=== PATIENT | female | born 1990 | race Hispanic/Latino ===

== ENCOUNTER 2020-05-08 14:35 | Outpatient (CLI) | payer OTHER ==
--- NOTE | 2020-05-08 15:51 | ULT ---
ULTRASOUND OBSTETRICAL COMPLETE: DATE: 05/08/2020 HISTORY: 30-year-old female in . Evaluate anatomy. FINDINGS: number: jiang lie: Cephalic Maternal cervix: 3 cm. Closed. Placenta: Posterior. No placenta previa. Amniotic fluid volume: Subjectively normal. GABRIELLE not measured. heart rate: 140 bpm The following anatomy is visualized, with no evidence of anomalies: Head, cerebellum, lateral ventricles, four-chamber heart, stomach, kidneys, cord insertion, bladder, cervical spine, thoracic spine, lumbar spine, sacrum, nose and lips, upper extremities, lower extremities, and three-vessel cord. biometry: Biparietal diameter (BPD): 4.2 cm 18 w 6 d Head circumference (HC): 15.8 cm 18 w 5 d Abdominal circumference (AC): 12.9 cm 18 w 4 d Femur length (FL): 2.8 cm 18 w 3 d Average ultrasound age (AUA): 18 w 5 d Estimated date of delivery (FANY): 10/04/2020 Estimated weight (EFW): 241 g +/- 35 g IMPRESSION: 1) Live 2nd trimester intrauterine gestation. 2) Estimated gestational age of 18 weeks, 5 days 3) cephalic lie. 4) no anatomic abnormality identified.
== END 2020-05-08 14:36 | disposition home or self-care (01) ==
LOC: BICULT 14:35
PROVIDERS: ATTEND Family Medicine
DX: Z34.02 Encounter for supervision of normal first pregnancy, second trimester (principal); Z3A.18 18 weeks gestation of pregnancy
CPT/HCPCS: 76805

== ENCOUNTER 2020-09-23 05:23 | Inpatient (IN) | payer OTHER ==
[2020-09-23] MEDS ORDERED: CEFAZOLIN 2 GM in Premix Bag 1 BAG IVPB SCH (05:59)
[2020-09-23] MEDS ORDERED: Promethazine HCl 25 MG/ML VIAL IM PRN ×3 (05:59→10:36)
[2020-09-23] MEDS ORDERED: Ondansetron PF 4 MG/2 ML Vial IVP PRN ×3 (05:59→10:36)
[2020-09-23] MEDS ORDERED: hydrALAZINE 20 MG/ML VIAL SLOW IVP PRN ×2 (05:59→10:36)
[2020-09-23] MEDS ORDERED: Bicitra 30 ML UDCUP PO SCH (05:59)
[2020-09-23 06:05] VITALS: BMI 33.8
[2020-09-23 06:34] LABS: Hemoglobin 12.2 g/dL (12.0-16.0); Mean Corpuscular HGB CONC 34.5 g/dL (32.0-36.0); Mean Corpuscular Hemoglobin 30.5 pg (27.0-31.0); Mean Corpuscular Volume 88.3 fL (78.0-98.0); Platelet Count 226 thou/uL (130-400); RBC Distribution Width 13.5 % (11.5-14.5); Red Blood Cell (RBC) Count 4.01 mill/uL (4.20-5.40); White Blood Cell (WBC) Count 14.2 thou/uL (4.8-10.8)
[2020-09-23 07:08] LABS: Syphilis Antibody Nonreactive (Nonreactive); Syphilis Antibody Index 0.04 S/CO (<1.00 Non-Reactive)
[2020-09-23 07:09] LABS: HBSAg Index 0.18 S/CO (0-0.99); Hep B Surf Ag Non-Reactive S/CO (NonReactive)
[2020-09-23] MEDS ORDERED: Morphine PF 10 MG/10 ML VIAL ONE (07:25)
[2020-09-23] MEDS ORDERED: Ondansetron PF 4 MG/2 ML Vial ONE (07:28)
[2020-09-23] MEDS ORDERED: Oxytocin 10 UNITS/ML VIAL ONE ×2 (07:28→08:38)
[2020-09-23] MEDS ORDERED: PHENYLEPHRINE-NS 100 MCG/ML 10 ML SYRINGE ONE (07:28)
[2020-09-23] MEDS ORDERED: Ketamine 50 MG/ML (10ML VIAL) ONE (08:14)
[2020-09-23] MEDS ORDERED: L&D-Morphine 4 MG/ML VIAL SLOW IVP PRN (09:32)
[2020-09-23] MEDS ORDERED: Ketorolac Tromethamine 30 MG/ML VIAL IVP PRN (09:32)
[2020-09-23] MEDS ORDERED: Naloxone HCl 0.4 mg/ml Vial IV PRN (09:32)
[2020-09-23] MEDS ORDERED: Meperidine HCl/PF 25 MG/ML VIAL SLOW IVP PRN (09:32)
[2020-09-23] MEDS ORDERED: Naloxone HCl 0.4 mg/ml Vial IVP PRN ×2 (09:32)
[2020-09-23] MEDS ORDERED: Promethazine HCl 25 MG SUPP PR PRN (09:32)
[2020-09-23] MEDS ORDERED: HYDROmorphone 2 MG/ML VIAL SLOW IVP PRN ×2 (09:32→10:08)
[2020-09-23] MEDS ORDERED: diphenhydrAMINE 50 MG/ML VIAL IVP PRN (09:32)
[2020-09-23] MEDS ORDERED: Ondansetron HCl/PF 4 MG/2 ML Vial IVP PRN (09:32)
[2020-09-23] MEDS ORDERED: Communication Order-Pharmacy FS SCH (09:45)
[2020-09-23] MEDS ORDERED: Ketorolac Tromethamine 30 MG/ML VIAL IVP SCH (09:45)
[2020-09-23] MEDS ORDERED: Ketorolac Tromethamine 30 MG/ML VIAL ONE (09:46)
[2020-09-23] MEDS ORDERED: Morphine 4 MG/ML VIAL ONE (09:47)
--- NOTE | 2020-09-23 09:58 | PDOC.OPDEL ---
OB Operative/Delivery Note Delivery Dr/Surgeon: Rolando Assist: Mattie Pre-Delivery Diagnosis: breech Procedure/Post Delivery Dx: primary low transverse CS Weeks gestation: 39 (39.2) Anesthesia: spinal - Findings A Sex: male - 1 min: 8 - 5 min: 9 - Additional Findings/Plan Placenta delivered: manual removal findings: low transverse hysterotomy without extension, other (Serosal polypoid lesions on posterior aspect of uterus, approx 1x1cm and second approx 0.5 x 3cm) Estimated blood loss: 405 Compilations/Other Findings: Date of Procedure: 09/23/20 Resident Surgeon: Mattie Attending Surgeon: Rolando Procedure: Primary low transverse caesarean section Preoperative Diagnosis: 1) Term, SIUP 2) Breech Presentation Postoperative Diagnosis: 1) Term SIUP, delivered Anesthesia: spinal Indications: The patient is a 30 year old female at 39.2 weeks gestation who presented for primary low transverse caesarean section for breech presentation. Procedure in Detail: After risks, benefits, and alternatives were explained to the patient, she gave informed consent. Pre-operative antibiotics included Cefazolin 2 gram IV. The patient was taken to the operating room and spinal anesthesia was initiated. She was placed in the supine position with a left tilt and prepped and draped in usual sterile fashion. A Pfannenstiel incision was made with a scalpel and carried down to the level of the fascia which was sharply nicked. Small areas of bleeding were controlled with bovie electrocautery. The fascial cut was extended bilaterally with Mcneil scissors. The inferior and superior edges of the cut fascial edges were elevated with Jai clamps and the underlying rectus muscles were sharply and bluntly dissected free. The recti were divided with blunt dissection and retracted manually. The peritoneum was entered bluntly and retracted manually. Bladder blade was placed. A low transverse score was made with a new, clean scalpel and the uterus was entered in the midline bluntly. The hysterotomy was extended manually. Amniotomy with clear fluid. The infant was noted to be footling breech and was easily extracted. Mouth and nares were bulb suctioned. Cord clamped and cut and grossly normal male was handed to waiting nurse. Cord blood was obtained. Placenta was manually extracted, found to be intact with 3 vessel cord and discarded. The uterus was externalized and the endometrium was curetted with a dry lap. The uterus was then noted to be firm. The bladder blade was replaced and the uterus was closed with a running locking #1 Monocryl. A single figure of eight suture was placed using #1 Monocryl for one area of bleeding along the hysteromy edge. Following this hemostasis was noted. A second hysterotomy layer closure was placed using a running, non locking 0-Vicryl suture. The abdomen was irrigated with saline and suctioned free of clots. On inspect of the posterior aspect of the uterus, an area of Two polypoid serosal lesions were noted. One approximately 0.5 x 3cm and a second approximately 1x1cm. Both areas were oozing. Danna was then placed over the area with improved hemostasis. The lower polypoid lesion continued to ooze and thus Flow-seal was placed over the area with adequate hemostasis. The area was again inspected and noted to be hemostatic. The uterus was internalized and the hysterotomy was again noted to be hemostatic. Peritoneum was reapproximated with a running, non-locking 3-0 Vicryl. The fascia was then closed with a running non-locking 1-PDS suture. The bovie electrocautery was used to achieve hemostatis of small areas of bleeding. The subcutaneous tissue was irrigated and there were no bleeders. The subcutaneous tissue was reapproximated with interrupted vertical mattress sutures using 3-0 Vicryl. The skin was approximated with berny and a pressure dressing was placed. All counts were correct. The patient tolerated the procedure well and was taken to the recovery room in stable condition. QBL: 405cc Complications: None Specimens: Cord blood sent to lab for blood type. Findings: 1. Grossly normal male infant with Apgars of 8 and 9. Grossly normal placenta with 3 vessel cord. 2. Two posterior uterine serosal polypoid lesions, one approximately 0.5 x 3cm and a second approximately 1x1cm Drains: Rajput to gravity draining clear urine Post delivery plan: routine recovery
[2020-09-23] MEDS ORDERED: Morphine 4 MG/ML VIAL SLOW IVP PRN (10:15)
[2020-09-23] MEDS: Lactated Ringer's 1,000 ML IV SCH ×2 (10:29→12:44)
[2020-09-23] MEDS ORDERED: Lanolin Ointment 7 GM TUBE TOP PRN (10:36)
[2020-09-23] MEDS ORDERED: Simethicone Chewable 80 MG TAB PO PRN (10:36)
[2020-09-23] MEDS ORDERED: diphenhydrAMINE 25 MG CAP PO PRN (10:36)
[2020-09-23] MEDS ORDERED: Bisacodyl 10 MG SUPP PR PRN (10:36)
[2020-09-23] MEDS ORDERED: Meperidine HCl/PF 25 MG/ML VIAL IM PRN (10:36)
[2020-09-23] MEDS ORDERED: NS / Oxytocin 40 units/1000ml 1,000 ML IV SCH (10:36)
[2020-09-23] MEDS: Ketorolac Tromethamine 30 MG/ML VIAL IVP SCH ×2 (12:53→17:36)
[2020-09-23] MEDS: Docusate Calcium (SURFAK) 240 MG CAP PO SCH (22:39)
[2020-09-23] MEDS: Ferrous Sulfate 325 MG TAB PO SCH (22:40)
[2020-09-23] MEDS ORDERED: Sodium Chloride 0.9% 10 ML ONE (23:52)
[2020-09-24] MEDS: Ketorolac Tromethamine 30 MG/ML VIAL IVP SCH ×2 (00:02→05:41)
[2020-09-24] MEDS ORDERED: HYDROcodone/Acetaminophen 5/325 mg Tablet PO PRN ×2 (01:00)
[2020-09-24] MEDS ORDERED: Sodium Chloride 0.9% 10 ML ONE (05:02)
[2020-09-24 07:49] LABS: Hemoglobin 10.5 g/dL (12.0-16.0); Mean Corpuscular HGB CONC 34.6 g/dL (32.0-36.0); Mean Corpuscular Hemoglobin 31.5 pg (27.0-31.0); Mean Corpuscular Volume 91.3 fL (78.0-98.0); Mean Platelet Volume 6.8 fL (7.4-10.4); Platelet Count 181 thou/uL (130-400); RBC Distribution Width 13.7 % (11.5-14.5); Red Blood Cell (RBC) Count 3.33 mill/uL (4.20-5.40); White Blood Cell (WBC) Count 14.6 thou/uL (4.8-10.8)
[2020-09-24] MEDS: Ferrous Sulfate 325 MG TAB PO SCH ×2 (09:07→19:52)
[2020-09-24] MEDS: Prenatal Vitamin 1 TAB PO SCH (09:22)
[2020-09-24] MEDS: Docusate Calcium (SURFAK) 240 MG CAP PO SCH ×2 (09:22→22:32)
[2020-09-24] MEDS ORDERED: Adacel (T-DAP) 0.5 ML SYRINGE IM ONE (10:36)
[2020-09-24] MEDS: Ibuprofen 800 MG TAB PO SCH ×2 (14:03→22:30)
[2020-09-25] MEDS: Ibuprofen 800 MG TAB PO SCH (06:24)
[2020-09-25 08:48] VITALS: BP 105/51; TEMP 97.9
[2020-09-25] MEDS: Prenatal Vitamin 1 TAB PO SCH (08:55)
[2020-09-25] MEDS: Docusate Calcium (SURFAK) 240 MG CAP PO SCH (08:55)
[2020-09-25] MEDS: Ferrous Sulfate 325 MG TAB PO SCH (08:58)
== END 2020-09-25 13:00 | disposition home or self-care (01) | DRG 788 ==
LOC: L&D 05:23 → 3SW 12:54
PROVIDERS: ADMIT Family Medicine; ATTEND Family Medicine
PROC: 10D00Z1 Extraction of Products of Conception, Low, Open Approach (ICD-10-PCS; principal; 2020-09-23)
DX: O32.8XX0 Maternal care for other malpresentation of fetus, not applicable or unspecified (principal); Z3A.39 39 weeks gestation of pregnancy; Z37.0 Single live birth; O34.13 Maternal care for benign tumor of corpus uteri, third trimester
CPT/HCPCS: 36415; 51702; 85027; 86780; 86850; 86900; 86901; 87340; J1170; J1885; J2270; J2405